=== PATIENT | male | born 1975 | race Caucasian/White ===

== ENCOUNTER → 2017-11-11 13:37 | Outpatient (CLI) | payer MEDICARE, OTHER, SELFPAY ==
[2017-11-11 15:34] LABS: INR 1.52 (0.9-1.1); Prothrombin Time 16.5 seconds (9.4-11.8)
== END ==
PROVIDERS: PCP Nurse Practitioner Family; Visit Provider Nurse Practitioner Family
DX: I82.90 Acute embolism and thrombosis of unspecified vein (principal); Z79.01 Long term (current) use of anticoagulants; Z51.81 Encounter for therapeutic drug level monitoring
CPT/HCPCS: 36415; 85610

== ENCOUNTER 2017-11-28 18:02 | Emergency (ER) | payer MEDICARE, OTHER, SELFPAY ==
[2017-11-28 18:03] VITALS: BP 158/80; PULSE 117; RESP 24; TEMP 36.6; O2SAT 97; BMI 40.1
--- NOTE | 2017-11-28 18:18 | XR_ITS ---
XR chest portable Ordering Physician: Emilio Soto MD Patient Age: 42 years: Male HISTORY: ITS.REASON: SOA TECHNIQUE: AP portable upright chest COMPARISON :August 2017 CXR s FINDINGS Cephalization. Prominent pulmonary vascularity. . Findings are suspect for CHF. We do not see the more severe prominent bilateral alveolar infiltrate that was seen on August 2017 but there is some subtle I believe early perihilar infiltrate which reflects CHF most likely. desk monitor leads are in place no pleural effusion. Mild cardiomegaly. Generous with the mediastinumv again noted likely reflecting the AP projection in this generous size patient IMPRESSION 1. vascular congestion.. Mild/moderate CHF . 2 Mild cardio megaly
[2017-11-28 18:53] LABS: Basophils % 0.4 % (0.1-2.0); Eosinophils # 0.2 K/mm3 (0.0-0.4); Eosinophils % 2.7 % (0.1-12.0); Hematocrit 33.6 % (42.0-52.0); Hemoglobin 10.5 g/dL (14.1-18.0); Lymphocytes % 14.2 K/mm3 (10-50); Mean Corpuscular HGB Conc 31.1 g/dL (31.8-35.4); Mean Corpuscular Hemoglobin 31.8 pg (27.0-31.2); Mean Corpuscular Volume 102.1 fl (80-94); Mean Platelet Volume 7.7 fl (7.4-10.4); Monocytes # 0.2 K/mm3 (0.1-1.0); Monocytes % 2.8 % (1.7-9.3); Neutrophils # 5.8 K/mm3 (1.8-7.8); Neutrophils % 79.9 % (37.0-80.0); Platelet Count 180 K/mm3 (142-424); Red Blood Count 3.29 M/mm3 (4.60-6.20); Red Cell Distribution Width 16.1 % (11.5-17.5); White Blood Count 7.3 K/mm3 (4.8-10.8)
--- NOTE | 2017-11-28 18:55 | HMH.EDSOB ---
ED Disposition Clinical Impression: ESRD (end stage renal disease) on dialysis Congestive heart failure Qualifiers: Congestive heart failure type: unspecified Congestive heart failure chronicity: chronic Qualified Code(s): I50.9 - Heart failure, unspecified Disposition: Home, Self-Care Condition on Discharge: Good Instructions: DI for Shortness of Breath Additional Instructions: see pcp for follow up and keep dialysis in am Referrals: Adelaida Valero APRN [Primary Care Provider] - - Critical Care Critical Care Time: No Attestation: On 11/28/17, the high probability of a clinically significant, sudden or life threatening deterioration of the following system(s) required my full and direct attention, intervention and personal management. The time I documented below is in addition to time spent performing reported procedures but includes the following listed in this critical care notation. Medical Decision Making - Medical Records Medical records reviewed: Yes: I reviewed the patient's medical records. Vital Signs: 11/28/17 18:03 Temperature 98 F Temperature Source Oral Pulse Rate [Right Brachial] 117 H Respiratory Rate 24 Blood Pressure [Right Arm] 158/80 Blood Pressure Mean [Right Arm] 106 Blood Pressure Source [Right Arm] Automatic Cuff Blood Pressure Position [Right Arm] Sitting 02 Sat by Pulse Oximetry 97 Oxygen Delivery Method Nasal Cannula Oxygen Flow Rate (LPM) 2 - Lab Data Lab results reviewed: Yes: I reviewed the patient's lab results. Lab Results 11/28/17 18:40: WBC 7.3, RBC 3.29 L, Hgb 10.5 L, Hct 33.6 L, MCV 102.1 H, MCH 31.8 H, MCHC 31.1 L, RDW 16.1, Plt Count 180, MPV 7.7, Neut % (Auto) 79.9, Lymph % (Auto) 14.2, [place] % (Auto) 2.8, Eos % (Auto) 2.7, Baso % (Auto) 0.4, Neut # (Auto) 5.8, Lymph # (Auto) 1.0, [place] # (Auto) 0.2, Eos # (Auto) 0.2, Baso # (Auto) 0.0 11/28/17 18:40: Sodium 138, Potassium 5.3 H, Chloride 100, Carbon Dioxide 29, Anion Gap 14.3, BUN 57 H, Creatinine 8.01 H, Estimated Creat Clear 23, Estimated GFR 7 L*, Est GFR ( Amer) 9 L*, Glucose 108 H, Calcium 8.6, Total Bilirubin 0.3, AST 10 L, ALT 19, Alkaline Phosphatase 982 H, Total Creatine Kinase 23 L, CK-MB (CK-2) < 0.5, CK-MB (CK-2) Rel Index 2.2, Troponin I < 0.02, Total Protein 6.8, Albumin 2.6 L, Globulin 4.2 H, Albumin/Globulin Ratio 0.6 L 11/28/17 18:40: B-Natriuretic Peptide 994 H 11/28/17 19:10: PT 14.3 H, INR 1.32 H Result diagrams: 11/28/17 18:40 11/28/17 18:40 - Radiology Data #1 Image(s): Chest Image Reviewed: Yes I reviewed the patient's radiology image Preliminary Findings: Abnormal (cm/poor insp) - ECG Data Tracing #1 I reviewed this ECG and interpreted as documented below: Arrhythmias present: junctional tachycardia Ischemic changes: non-specific ST-T wave changes - Shmuel Inquiry Pt receiving controlled substance: No Resp/SOB HPI - General Chief Complaint: Shortness of Breath/Dyspnea Stated Complaint: SHORTNESS OF AIR Time Seen by Provider: 11/28/17 18:56 Mode of Arrival: EMS Source of Information: Patient, EMS, Medical Record Limitations: No Limitations Description of Symptoms (Recalled from ER Triage Doc. by RN): SHORTNESS OF AIR; DUE FOR DIALYSIS ON - History of Present Illness pt with hx of esrd on dialysis - next in am and he has sob tonight with no chest pain or fever - he reports compliant with meds and diet Complaint: shortness of breath Onset (ago): hour(s) Severity: moderate Known history of: congestive heart failure, other (esrd) - Related Data Home Medications Medication Instructions Recorded Confirmed sevelamer HCl 800 mg tablet 800 mg PO TID tab 11/02/17 11/28/17 Warfarin Sodium [Coumadin 10mg 10 mg PO .COMPLEX 11/28/17 11/28/17 tablet] Warfarin Sodium [Coumadin 7.5mg 7.5 mg PO .COMPLEX 11/28/17 11/28/17 tablet] Allergies Allergy/AdvReac Type Severity Reaction Status Date / Time No Known Allergies Allergy Unverifie
[2017-11-28 19:24] LABS: Alanine Aminotransferase 19 U/L (12-78); Albumin Level 2.6 gm/dL (3.4-5.0); Albumin/Globulin Ratio 0.6 (1.1-1.8); Alkaline Phosphatase 982 U/L (46-116); Anion Gap 14.3 mEq/L (5-15); Aspartate Amino Transferase 10 U/L (15-37); Bilirubin,Total 0.3 mg/dL (0.2-1.0); Blood Urea Nitrogen 57 mg/dL (7-18); Calcium 8.6 mg/dL (8.5-10.1); Carbon Dioxide 29 mmol/L (21.0-32.0); Chloride 100 mmol/L (98-107); Creatine Kinase 23 U/L (39-308); Creatinine Clearance Estimated 23 mL/min (0-300); Estimated Glomerular Filt Rate 7 ml/min (>60); GFR (African American) 9 ML/MIN (>60); Globulin 4.2 gm/dl (1.3-3.2); Glucose 108 mg/dL (74-106); Potassium 5.3 mmoL/L (3.5-5.1); Sodium 138 mmol/L (136-145); Total Protein,Serum 6.8 gm/dL (6.4-8.2); Troponin I < 0.02 ng/ml (0.00-0.06)
[2017-11-28 19:28] LABS: CKMB Relative Index 2.2 U/L (0-4.0); Creatine Kinase MB < 0.5 mg/ml (0.0-3.6); Creatinine,Serum 8.01 mg/dL (0.70-1.30)
[2017-11-28 19:33] LABS: INR 1.32 (0.9-1.1); Prothrombin Time 14.3 seconds (9.4-11.8)
[2017-11-28 20:17] VITALS: BP 161/92; PULSE 114; RESP 18; TEMP 37.2; O2SAT 94
--- NOTE | 2018-01-03 10:27 | HMH.ACPN ---
Internal Medicine - PN: Subj *Date: 01/03/18 *Time: 10:27 Exam Vital signs and Labs for Last 24 Hours: Temp Pulse Resp BP Pulse Ox 98.9 F 114 H 18 161/92 97 11/28/17 20:17 11/28/17 20:17 11/28/17 20:17 11/28/17 20:17 11/28/17 18:03 Assessment and Plan - Assessment and plan all Dx Assessment and Plan for all problems:: SPOKE WITH PATIENT ON PHONE ON 12/07/17 AND SCHEDULED APPOINTMENT ON 12/09 TO HAVE FS-INR WITH [facility]. PATIENT WAS NO SHOW/NO CALL. WAS ABLE TO SPEAK WITH PATIENT ON PHONE AGAIN ON 12/23 AND SCHEDULED APPOINTMENT FOR 12/30. AGAIN PATIENT WAS NO SHOW/NO CALL. CALLED DR. FOREMAN'S OFFICE TODAY. PATIENT TO BE SEEN THERE TOMORROW. OFFICE WILL DISCUSS WITH PATIENT AND TRY TO GET HIM TO BE SEEN IN [facility] TOMMORROW. BK DANIELS, PHARMD
== END 2017-11-28 20:19 | disposition home or self-care (01) ==
PROVIDERS: Emergency Provider Emergency Medicine; Family Provider Family Medicine; PCP Nurse Practitioner Family
DX: N18.6 End stage renal disease (principal); I50.9 Heart failure, unspecified; Z79.01 Long term (current) use of anticoagulants; I10 Essential (primary) hypertension; Z99.2 Dependence on renal dialysis
CPT/HCPCS: 71045; 80053; 82550; 82553; 83880; 84484; 85025; 85610; 93005; 99282

== ENCOUNTER → 2018-02-15 15:10 | Outpatient (REF) | payer MEDICARE, OTHER, SELFPAY ==
[2018-02-15 18:09] LABS: INR 1.16 (0.9-1.1); Prothrombin Time 12.6 seconds (9.4-11.8)
== END ==
LOC: LAB 15:10
PROVIDERS: Visit Provider Nurse Practitioner Family
DX: I50.9 Heart failure, unspecified (principal)
CPT/HCPCS: 85610

== ENCOUNTER → 2018-04-17 14:59 | Outpatient (CLI) | payer MEDICARE, OTHER, SELFPAY ==
[2018-04-17 18:06] LABS: Free T4 (Free Thyroxine) 0.77 ng/dl (0.76-1.46); Thyroid Stimulating Hormone 3.01 uIU/ml (0.358-3.740)
[2018-04-21 06:32] LABS: Parathyroid Hormone Intact 2448 pg/mL (15-65)
[2018-04-21 06:33] LABS: Calcium, Ionized 4.9 mg/dL (4.5-5.6)
== END ==
PROVIDERS: Visit Provider Otolaryngology
DX: I50.9 Heart failure, unspecified (principal); E21.0 Primary hyperparathyroidism; E83.52 Hypercalcemia
CPT/HCPCS: 36415; 82330; 83970; 84439; 84443

== ENCOUNTER 2018-06-11 18:02 | Inpatient (IN) ==
--- NOTE | 2018-06-11 18:40 | Emergency Department Note ---
ED Disposition Clinical Impression: Elevated troponin Chest pain Qualifiers: Chest pain type: precordial pain Qualified Code(s): R07.2 - Precordial pain Disposition: Still a Patient Condition on Discharge: Fair Referrals: Adelaida Valero APRN [Primary Care Provider] - - Critical Care Critical Care Time: Yes Attestation: On 06/11/18, the high probability of a clinically significant, sudden or life threatening deterioration of the following system(s) required my full and direct attention, intervention and personal management. The time I documented below is in addition to time spent performing reported procedures but includes the following listed in this critical care notation. Total Critical Care Time: 30 Vital system(s) involved:: Circulatory Failure My critical care processes included: Assessment & monitoring of V/S, Initial and Re-exams, Data Review/Interpretation, Coordinating Care, Medication Orders and management, Documentation Medical Decision Making - Shmuel Inquiry Pt receiving controlled substance: No Vital Signs: 06/11/18 18:03 06/11/18 18:33 Pulse Rate [Apical] 103 H 102 H Respiratory Rate 20 18 Blood Pressure [Right Arm] 91/59 90/59 Blood Pressure Mean [Right Arm] 69 69 Blood Pressure Source [Right Arm] Manual Cuff/ Doppler Automatic Cuff Blood Pressure Position [Right Arm] Sitting Sitting 02 Sat by Pulse Oximetry 97 97 Oxygen Delivery Method Room Air Room Air - Lab Data Lab Results 06/11/18 18:35: WBC 6.1, RBC 3.36 L, Hgb 10.1 L, Hct 33.1 L, MCV 98.4 H, MCH 30.2, MCHC 30.7 L, RDW 18.0 H, Plt Count 278, MPV 7.7, Neut % (Auto) 77.6, Lymph % (Auto) 15.8, [place] % (Auto) 4.2, Eos % (Auto) 2.1, Baso % (Auto) 0.4, Neut # (Auto) 4.7, Lymph # (Auto) 1.0, [place] # (Auto) 0.3, Eos # (Auto) 0.1, Baso # (Auto) 0.0 06/11/18 18:35: Sodium 140, Potassium 4.1, Chloride 97 L, Carbon Dioxide 30, Anion Gap 17.1 H, BUN 47 H, Creatinine 7.06 H, Estimated Creat Clear 14, Estimated GFR 9 L*, Est GFR ( Amer) 10 L*, Glucose 118 H, Calcium 9.8, Troponin I 0.36 H Result diagrams: 06/11/18 18:35 06/11/18 18:35 Orders (Tests/Meds): ED MEDICATIONS Generic Name Dose Route Start Last Admin Trade Name Freq PRN Reason Stop Dose Admin Diphenhydramine HCl 50 mg 06/11/18 19:46 Benadryl 50mg/1ml Vial IV 06/11/18 19:47 ONCE ONE Fentanyl Citrate 50 mcg 06/11/18 19:46 Fentanyl 100mcg/2ml Vial IV 06/12/18 19:46 Q3MINP PRN Moderate to Severe Pain Fentanyl Citrate 25 mcg 06/11/18 19:46 Fentanyl 100mcg/2ml Vial IV 06/12/18 19:46 Q3MINP PRN Moderate to Severe Pain Flumazenil 0.2 mg 06/11/18 19:46 Romazicon 0.1mg/Ml 5ml Vial IV 06/11/18 23:00 NEEDED PRN Sedation Heparin Sodium (Porcine) 10,000 unit 06/11/18 19:46 Heparin 1,000 Units/Ml 10ml Vial (Java Development Team Lead) IV 06/11/18 23:46 NEEDED PRN Emergency Box Garden Consultant Heparin Sodium/Sodium Chloride 3,000 unit 06/11/18 19:46 Heparin 1000 Units/500ml Ns (Java Development Team Lead) IV 06/11/18 19:47 ONCE ONE Sodium Chloride 1,000 mls @ 25 mls/hr 06/11/18 20:00 Sod Chlor 0.9% 1000ml Bag IV 06/12/18 19:46 .Q25H ALIZA Lidocaine HCl 20 ml 06/11/18 19:46 Lidocaine 1% 20ml Mdv IJ 06/11/18 19:47 ONCE ONE Midazolam HCl 1 mg 06/11/18 19:46 Midazolam 2mg/2ml Vial IV 06/12/18 19:46 Q3MINP PRN Sedation Midazolam HCl 1 mg 06/11/18 19:46 Midazolam 1mg/Ml 5ml Vial IV 06/12/18 19:46 Q3MINP PRN Sedation Naloxone HCl 0.4 mg 06/11/18 19:46 Narcan 0.4mg/Ml Vial IV 06/12/18 19:46 Q5MINP PRN Decreased respirations Nitroglycerin 800 mcg 06/11/18 19:46 Nitroglycerin 800mcg/8ml Syr (Java Development Team Lead) IV 06/12/18 19:46 NEEDED PRN Emergency Box Garden Consultant Verapamil HCl 2.5 mg 06/11/18 19:46 Verapamil 2.5mg/Ml 2ml Vial IV 06/11/18 19:47 ONCE ONE ORDERS Category Date Time Status Chest XR -- portable [XR chest portable] Stat Exams 06/11/18 18:44 Taken PT INR [Prothrombin Time INR] Stat Lab 06/11/18 19:35 Received - ECG Data Tracing #1 EKG interpreted by Sharif Levi MD: Rhythm: sinus tachycardia Rate: 102 [place]: normal Ectopy: none Conduction: normal ST elevation in leads V1 and V2. Nonspecific ST some changes in the lateral and inferior leads. - Physician Consults Physician Consulted: David Time: 18:38 Reason -: Cardiology Eval/Care Comment/Response: EKG transmitted along with old EKG. He does not feel this is a STEMI. Continue evaluation with troponin. Additional Consult: David Time: 19:25 Reason -: Cardiology Eval/Care Comment/Response: Notified of elevated troponin. Patient continues to have chest pain. He has not been given nitroglycerin or beta karen because his blood pressure has been in the 90s. Dr. Hernandez requests activation of the cardiac cath team and he will come in. General Adult HPI - General Chief complaint: Chest Pain Stated complaint: chest pain Time Seen by Provider: 06/11/18 18:25 Mode of Arrival: EMS Limitations: No Limitations Description of Symptoms (Recalled from ER Triage Doc. by RN): Pt reports sharp pain in R breast area, states pain began yesterday. Pt reports pain began yesterday began yesterday while at dialysis, pt reports pain is intermittent in nature. Pt reports has had a cough x1 week. - History of Present Illness HPI narrative: Hemodialysis patient. States that during dialysis yesterday at noon he developed chest pain, precordial. He has had shortness of breath. Nausea and diaphoresis. Pain went away when he got home after dialysis, but then came back at about 5 PM. Pain was present until he went to sleep and was again present when he awakened this morning at 10 AM. It is been present all day long. He is concerned because he had a prior cardiac arrest in August. He is not sure whether he has had a myocardial infarction. He has not had a stent or bypass surgery. Does not currently have a oxidation engineer. He gets his dialysis in [facility]. - Related Data Home Medications Medication Instructions Recorded Confirmed sevelamer HCl 800 mg tablet 800 mg PO TID tab 11/02/17 11/28/17 Previous Rx's Medication Instructions Recorded gabapentin 100 mg capsule 100 mg PO QHS #14 cap 04/28/18 warfarin 5 mg tablet 5 mg PO DAILY #30 tab 05/26/18 Allergies Allergy/AdvReac Type Severity Reaction Status Date / Time No Known Allergies Allergy Verified 04/28/18 14:01 [facility] History I have reviewed the patient's past medical history: Yes Medical History: Reports:: Hypertension, Renal Disease Denies:: Internal Pacemaker Other Medical History: Reports: Hypothyroidism, Other Comment: IGA,HEART MURMUR, VISION ISSUES, WRIST PAIN, Thyroid issues, kidney failure Laterality Cases: Bilateral: Other Other Surgeries: Yes: Other. No: Pacemaker Amputation: No Fractures: No Comment: PATIENT IS CURRENTLY IN DIALYSIS FOR IGA AND KIDNEY FAILURE, ANKLE SURGERY A CHILD - Social History Smoking Status: Never smoker Alcohol Intake: never Substance Use Type: denies use Occupational Status: disabled Housing: house Household Members: spouse - Psychiatric History Expresses thoughts of harming self/others: None Suicide Plan Description: No Plan Family Hx:: Stroke, Heart Attack, Kidney Disease, Cancer ROS Obtained: Yes All systems reviewed & no additional complaints - Constitutional Constitutional: Denies fever(s) - Cardiovascular Cardiovascular: Reports chest pain, Reports diaphoresis - Respiratory Respiratory: Yes cough, Yes dyspnea - Gastrointestinal Gastrointestingal: Reports: nausea Physical Exam - General General appearance: alert, in no apparent distress - Head Head exam: atraumatic, normocephalic, normal inspection - Eye Eye exam: Present: normal appearance, PERRL, EOMI - ENT ENT exam: Present: normal exam, normal oropharynx, mucous membranes moist, TM's normal bilaterally, normal external ear exam - Neck Neck exam: Present: normal inspection, full ROM, trachea midline. Absent: meningismus, lymphadenopathy - Chest Chest inspection: Present: normal inspection, symmetric chest wall rise. Absent: tenderness - Respiratory Respiratory exam: Present: normal lung sounds bilaterally. Absent: respiratory distress - Cardiovascular Cardiovascular exam: Present: regular rate, normal rhythm. Absent: JVD - Abdominal Exam Abdominal exam: Present: soft, tenderness, normal bowel sounds. Absent: distention, guarding Abdominal tenderness: Present: diffuse, mild - Extremities Exam Extremities exam: Present: normal inspection, full ROM, normal capillary refill. Absent: calf tenderness - Neurological Exam Neurological exam: Present: alert, oriented X3 - Psychiatric Psychiatric exam: Present: normal affect, normal mood - Skin Skin exam: Present: warm, dry, intact, pallor
[2018-06-11 18:52] LABS: Basophils % 0.4 % (0.1-2.0); Eosinophils # 0.1 K/mm3 (0.0-0.4); Eosinophils % 2.1 % (0.1-12.0); Hematocrit 33.1 % (42.0-52.0); Hemoglobin 10.1 g/dL (14.1-18.0); Lymphocytes % 15.8 K/mm3 (10-50); Mean Corpuscular HGB Conc 30.7 g/dL (31.8-35.4); Mean Corpuscular Hemoglobin 30.2 pg (27.0-31.2); Mean Corpuscular Volume 98.4 fl (80-94); Mean Platelet Volume 7.7 fl (7.4-10.4); Monocytes # 0.3 K/mm3 (0.1-1.0); Monocytes % 4.2 % (1.7-9.3); Neutrophils # 4.7 K/mm3 (1.8-7.8); Neutrophils % 77.6 % (37.0-80.0); Platelet Count 278 K/mm3 (142-424); Red Blood Count 3.36 M/mm3 (4.60-6.20); White Blood Count 6.1 K/mm3 (4.8-10.8)
[2018-06-11 19:04] LABS: Anion Gap 17.1 mEq/L (5-15); Calcium 9.8 mg/dL (8.5-10.1); Potassium 4.1 mmoL/L (3.5-5.1)
[2018-06-11 19:48] LABS: INR 2.42 (0.9-1.1); Prothrombin Time 24.3 seconds (9.4-11.8)
[2018-06-12 05:38] LABS: Basophils % 0.3 % (0.1-2.0); Eosinophils # 0.1 K/mm3 (0.0-0.4); Eosinophils % 1.9 % (0.1-12.0); Hemoglobin 10.1 g/dL (14.1-18.0); Lymphocytes # 0.9 K/mm3 (0.7-4.5); Lymphocytes % 15.3 K/mm3 (10-50); Mean Corpuscular HGB Conc 30.7 g/dL (31.8-35.4); Mean Corpuscular Hemoglobin 30.6 pg (27.0-31.2); Mean Corpuscular Volume 99.5 fl (80-94); Mean Platelet Volume 7.4 fl (7.4-10.4); Monocytes # 0.3 K/mm3 (0.1-1.0); Monocytes % 5.2 % (1.7-9.3); Neutrophils # 4.7 K/mm3 (1.8-7.8); Neutrophils % 77.3 % (37.0-80.0); Platelet Count 250 K/mm3 (142-424); Red Blood Count 3.32 M/mm3 (4.60-6.20)
[2018-06-12 05:51] LABS: Anion Gap 21.2 mEq/L (5-15); Calcium 9.4 mg/dL (8.5-10.1); Chol/HDL Ratio 3.9 (1-3.5); Potassium 4.2 mmoL/L (3.5-5.1)
--- NOTE | 2018-06-12 08:19 | Consult Report ---
Addendum entered and electronically signed by ENRIQUE Herring 06/12/18 10:11: Correction: Pt's EKG in ER shows evidence of anterior ST elevation with inferior ischemia which have resolved on the EKG today. Pt had a STEMI. Preliminary Echo today shows EF 45-50% with mild and moderate MR. Original Note: History of Present Illness Consult date: 06/12/18 Requesting physician: Khurram Michaud Consult reason: chest pain Chief complaint: Chest pain, shortness of breath Additional Medical History:: 1. Chronic kidney disease, secondary to IgA neuropathy A. Dialysis, 11 years 2. Hypertension 3. Non-ST elevation RI, 06/11/18 A. Cardiac catheterization, 06/11/18, drug-eluting stent placement to LAD and circumflex arteries. Left ventricular ejection fraction 50% with LVEDP of 40 mmHg. B. History of cardiac arrest August/2017, unknown etiology 4. On coumadin therapy for reported "blood clot in my heart" in 08/2017 History of present illness: Hemodialysis patient. States that during dialysis yesterday at noon he developed chest pain, precordial. He has had shortness of breath. Nausea and diaphoresis. Pain went away when he got home after dialysis, but then came back at about 5 PM. Pain was present until he went to sleep and was again present when he awakened this morning at 10 AM. It is been present all day long. He is concerned because he had a prior cardiac arrest in August. He is not sure whether he has had a myocardial infarction. He has not had a stent or bypass surgery. Does not currently have a qualitative researcher. He gets his dialysis in [facility]. The above per Dr. Levi Patient was taken to the cardiac Pharmacovigilance Scientist yesterday and received coronary artery stenting to the LAD and circumflex arteries. This a.m. the patient states his chest pain shortness of breath have resolved. He gets dialysis on Tuesday and Tuesday. [facility] History Medical History: Reports:: Hypertension, Renal Disease Denies:: Internal Pacemaker Other Medical History: Reports: Hypothyroidism, Other Laterality Cases: Bilateral: Other Other Surgeries: Yes: Other. No: Pacemaker Amputation: No Fractures: No - *Social History Educational Level: Attended High School Smoking Status: Never smoker Alcohol Intake: never Substance Use Type: denies use Occupational Status: disabled Housing: house Household Members: spouse - Psychiatric History Expresses thoughts of harming self/others: None Suicide Plan Description: No Plan *Family Hx:: Stroke, Heart Attack, Kidney Disease, Cancer Meds Home Medications Medication Instructions Recorded Confirmed Type sevelamer HCl 800 mg tablet 800 mg PO TID tab 11/02/17 06/12/18 History Gabapentin [Gabapentin 100mg Cap] 100 mg PO QHS 06/12/18 06/12/18 History Warfarin Sodium [Coumadin 5mg 5 mg PO DAILY 06/12/18 06/12/18 History tablet] Allergies Allergy/AdvReac Type Severity Reaction Status Date / Time No Known Allergies Allergy Verified 04/28/18 14:01 Review of Systems - *Cardiovascular Reports chest pain, Reports shortness of breath, Reports shortness of breath with activity - *Respiratory Reports shortness of breath, Reports shortness of breath with activity - *Gastrointestinal Denies abdominal pain - *Genitourinary Denies blood in urine - *Musculoskeletal Reports joint pain - *Neurologic Reports lack of coordination, Denies dizziness Exam Vital signs and Labs for Last 24 Hours: Temp Pulse Resp BP Pulse Ox 97.6 F 100 H 18 120/75 99 06/12/18 03:55 06/12/18 04:00 06/12/18 03:55 06/12/18 03:55 06/12/18 03:55 Laboratory Results - last 24 hr 06/11/18 18:35: WBC 6.1, RBC 3.36 L, Hgb 10.1 L, Hct 33.1 L, MCV 98.4 H, MCH 30.2, MCHC 30.7 L, RDW 18.0 H, Plt Count 278, MPV 7.7, Neut % (Auto) 77.6, Lymph % (Auto) 15.8, [place] % (Auto) 4.2, Eos % (Auto) 2.1, Baso % (Auto) 0.4, Neut # (Auto) 4.7, Lymph # (Auto) 1.0, [place] # (Auto) 0.3, Eos # (Auto) 0.1, Baso # (Auto) 0.0 06/11/18 18:35: Sodium 140, Potassium 4.1, Chloride 97 L, Carbon Dioxide 30, Anion Gap 17.1 H, BUN 47 H, Creatinine 7.06 H, Estimated Creat Clear 14, Estimated GFR 9 L*, Est GFR ( Amer) 10 L*, Glucose 118 H, Calcium 9.8, Troponin I 0.36 H 06/11/18 19:35: PT 24.3 H, INR 2.42 H 06/11/18 20:22: Activated Clotting Time > 400 H* 06/12/18 05:20: WBC 6.0, RBC 3.32 L, Hgb 10.1 L, Hct 33.0 L, MCV 99.5 H, MCH 30.6, MCHC 30.7 L, RDW 18.0 H, Plt Count 250, MPV 7.4, Neut % (Auto) 77.3, Lymph % (Auto) 15.3, [place] % (Auto) 5.2, Eos % (Auto) 1.9, Baso % (Auto) 0.3, Neut # (Auto) 4.7, Lymph # (Auto) 0.9, [place] # (Auto) 0.3, Eos # (Auto) 0.1, Baso # (Auto) 0.0 06/12/18 05:20: Sodium 141, Potassium 4.2, Chloride 97 L, Carbon Dioxide 27, Anion Gap 21.2 H, BUN 54 H, Creatinine 7.76 H, Estimated Creat Clear 18, Estimated GFR 8 L*, Est GFR ( Amer) 9 L*, Glucose 92 D, Calcium 9.4, Triglycerides 155, Cholesterol 171, LDL Cholesterol 96, VLDL Cholesterol 31, HDL Cholesterol 44, Cholesterol/HDL Ratio 3.9 H I & O for Last 24 hours: Intake & Output 06/09/18 06/10/18 06/11/18 06/12/18 11:59 11:59 11:59 11:59 Intake Total 120 / 120 Balance 120 / 120 Weight 231 lb 5 oz - *Routine Neck Exam Present: supple. Absent: JVD, carotid bruit - *Routine Respiratory Exam Present: CTA bilaterally. Absent: accessory muscle use, rales, rhonchi, wheezes - *Routine Cardiovascular Exam Present: RRR, murmur. Absent: gallop, rubs - *Routine Abdominal Exam Present: soft. Absent: tenderness, distended, guarding - *Routine Extremities Exam Absent: edema, calf tenderness - *Routine Neurological Exam Present: alert, oriented X3, moving all extremities Assessment and Plan (1) NSTEMI (non-ST elevated myocardial infarction) Current visit: Yes Status: Acute Category: Medical Code(s): I21.4 - Non-ST elevation (NSTEMI) myocardial infarction (2) Cardiomyopathy Current visit: Yes Status: Acute Category: Medical Code(s): I42.9 - Cardiomyopathy, unspecified (3) ESRD (end stage renal disease) on dialysis Current visit: No Status: Acute Category: Medical Code(s): N18.6 - End stage renal disease; Z99.2 - Dependence on renal dialysis (4) Neuropathy Current visit: No Status: Chronic Category: Medical Code(s): G62.9 - Polyneuropathy, unspecified - Assessment and plan all Dx Assessment and Plan for all problems:: Pt ok for discharge home today. Home meds: ASA 81 mg daily Brilinta 90 mg BID Atorvastatin 40 mg daily Continue coumadin as before. Bisoprolol 2.5 mg daily No LEE ANN at this time due to low BP. Will try low dose beta karen (bisoprolol 2.5 mg daily) for NSTEMI and mild tachycardia. If he develops symptomatic bradycardia or hypotension, then would stop it. Follow up in our office in one week.
--- NOTE | 2018-06-12 08:35 | Pharmacy Consult Notes ---
[facility] Pharmacy VTE Monitoring - Patient Demographics Admission date: 06/11/18 Report Date: 06/12/18 Time: 08:35 Allergies/Adverse Reactions: Patient Allergies No Known Allergies Allergy (Verified 04/28/18 14:01) Height: 1.8 m Weight: 104.922 kg Patient Problems: Current Active Problems Chest pain (Acute) Elevated troponin (Acute) - VTE Risk Labs: VTE Related Lab Results Hgb 10.1 g/dL (14.1-18.0) L 06/12/18 05:20 Hct 33.0 % (42.0-52.0) L 06/12/18 05:20 Plt Count 250 K/mm3 (142-424) 06/12/18 05:20 PT 24.3 seconds (9.4-11.8) H 06/11/18 19:35 INR 2.42 (0.9-1.1) H 06/11/18 19:35 BUN 54 mg/dL (7-18) H 06/12/18 05:20 Creatinine 7.76 mg/dL (0.70-1.30) H 06/12/18 05:20 Estimated Creat Clear 18 mL/min (0-300) 06/12/18 05:20 Was VTE Risk Assessment Performed: Yes VTE Score: 3 VTE Risk Level: Low Risk - Prophylaxis VTE Prophylaxis Ordered?: Yes Types of VTE Prophylaxis: TEDS Knee High Location of Applied Device: Bilateral Lower Extremeties - VTE Diagnosis Confirmed Treatment or plan recommended: Continue Current Treatment
--- NOTE | 2018-06-12 20:49 | Cardiology Report ---
PROCEDURE: INDICATIONS FOR THE TEST: Chest pain+ COPD Heart Murmur+ Tobacco Smoking Palpitations Fatigue Syncope Edema Hypertension+Diabetes Mellitus Rheumatic Fever SOB+RUELAS Obesity Hyperlipidemia Family History HD Additional History stents, cath 06/11/18, cardiac arrest 08/2017, renal failure, dialysis, murmur Definity contrast utilized PATIENT INFORMATION HEIGHT: 71 WEIGHT: 235 GENDER: Male B/P: 90/59 2-D/M-MODE INTERPRETATION: 2-D MEASUREMENTS OBSERVED VALUES IN CMS Right Ventricular Dimension (RVDd) 2.3 Interventricular Septum (Thickness)(IVsd) 1.2 Left Ventricular Internal Dimensions(LVIDd) 5.3 Left Ventricular Posterior Wall (Thickness)(LVPWd) 1.2 Aortic Root Aortic Cusp Separation Left Atrial Dimensions (LAD) 4.5 2D 1. Technically difficult study because of the patient's factor and poor acoustic windows, Definity contrast was utilized to delineate endocardial surfaces. 2. Left atrium is moderately enlarged, left ventricle is mildly dilated, mild concentric left ventricular hypertrophy, visually estimated ejection fraction approximately 25-30%, there is marked hypokinesis involving mid to distal septum, anterior, anteroapical and apical wall. There is marked hypokinesis involving the inferobasal wall. 3. The right atrium and right ventricle are mildly enlarged with normal contractility. 4. The aortic valve is thickened and calcified with restriction the leaflet mobility. 5. The mitral valve has mitral annular calcification, which extends and both anterior and posterior mitral leaflet. 6. The tricuspid valve leaflets are minimally thickened. 7. No significant pericardial effusion noted. DOPPLER INTERROGATION: 1. The maximum aortic out flow velocity recorded study 3.1 m/s, resulting in a mean gradient across valve of 25 mmHg, calculated valve area 1.13 sq cm represents moderate aortic stenosis, there is moderate to severe aortic insufficiency present. 2. The mitral inflow velocity is mildly increased, there is no mitral stenosis, there is tall with restrictive filling pattern suggestive of raised left ventricular end-diastolic pressure, there is severe mitral regurgitation present. 3. There is mild tricuspid regurgitation noted, tricuspid regurgitation jet velocity is insufficient for calculation of the right ventricular systolic pressure. CONCLUSION: 1. Technically difficult study, Definity contrast was placed to delineate endocardial surfaces. 2. Moderately enlarged left atrium, mildly dilated left ventricle, severely reduced left ventricular systolic function, visually estimated ejection fraction approximately 25-30%, with multiple segmental wall motion abnormality described above, Doppler evidence of raised left ventricular end-diastolic pressure seen. 3. Thickened and calcified aortic valve with valve area 1.13 sq cm represents moderate aortic stenosis, there is moderate to severe aortic insufficiency present. 4. Severe mitral regurgitation. 5. No significant pericardial effusion noted.
== END 2018-06-12 13:37 | disposition home or self-care (01) ==
LOC: ER 18:02 → CATHLAB 20:00 → 2ND 21:50
PROVIDERS: ADMIT Emergency Medicine; ATTEND Emergency Medicine